=== PATIENT | male | born 1955 | race Caucasian/White ===

== ENCOUNTER → 2020-08-12 | Outpatient (CLI) | payer OTHER, BC ==
[~2020-08-12] MED LIST: ADVAIR 100-501 EACH INH; BETASERON0.3 MG SUBQ; COREG6.25 MG PO; DEXAMETHASONE1 MG PO; DULERA 50 MCG-513 GM INH; ELIQUIS5 MG PO; FLORINEF ACETA0.1 MG PO; LISINOPRIL20 MG PO; MS CONTIN 30 MG30 M1 PO; NORCO7.5 PO; PROTONIX 20 MG20 MG PO; RITALIN5 MG PO; SUPER THERAVIT1 EACH PO; TRILEPTAL300 MG PO; VALIUM2 MG PO; VITAMIN D3125 MC1 PO
== END ==
LOC: LAB 13:44
PROVIDERS: ATTEND Specialist
DX: Z01.812 Encounter for preprocedural laboratory examination (principal); Z20.822 Contact with and (suspected) exposure to COVID-19

== ENCOUNTER → 2020-08-17 | Outpatient (CLI) | payer OTHER, BC ==
[~2020-08-17] VITALS: Ht 177.8 cm; Wt 81.6 kg
--- NOTE | ~2020-08-17 | P ---
[facility] [place] [address] PROCEDURE REPORT Name: FORD RAO Room #: REG JACQUELIN Tapia#: [id number] Admission: 08/17/20 Attend Phys: Pedro Davis Discharge: Date of : 51 Report #: [id number] THIS REPORT FOR: cc: Bal Braun MD, Mark R. MD McElhinney, Christian C. MD ~ DATE OF SERVICE: 08/17/2020 PROCEDURE PERFORMED: Colonoscopy. HISTORY OF PRESENT ILLNESS: The patient is a 65-year-old male with family history of colon cancer, here for screening colonoscopy. He does report intermittent right lower quadrant abdominal pain. He had a CT scan of the abdomen and pelvis, which was essentially negative in 2014. He takes Linzess for constipation. Family history of colon cancer in his mother. DESCRIPTION OF PROCEDURE: The risks and benefits of the procedure were explained to the patient, those risks including but not limited to bleeding, perforation and the risk of sedation. He understood these risks and gave informed consent. Sedation was given using propofol per anesthesia. Next, a digital rectal exam was initially performed, which was normal. Next, using a standard Olympus colonoscope, the scope was placed in the patient's anus and advanced under direct vision to the cecum. The overall prep was excellent. The cecum and ileocecal valve were normal in appearance. The ascending, transverse, descending and sigmoid colon were normal. The rectal mucosa was normal. On retroflexion, no abnormalities were noted. Scope was then withdrawn and the procedure terminated. The patient tolerated the procedure well. IMPRESSION: Normal colonoscopy. RECOMMENDATIONS: 1. Repeat colonoscopy in 5 years. 2. A script for Levsin was given today to be used on a p.r.n. basis. If pain continues, could consider repeat CT scan of the abdomen and pelvis. Thank you for allowing me to participate in his care. By: [id number] Pedro Hanna MD /nt
== END | disposition home or self-care (01) ==
LOC: GI 08:51
PROVIDERS: ATTEND Specialist
DX: R10.31 Right lower quadrant pain (principal); G35 Multiple sclerosis; R53.82 Chronic fatigue, unspecified; I10 Essential (primary) hypertension; K21.9 Gastro-esophageal reflux disease without esophagitis; Z80.0 Family history of malignant neoplasm of digestive organs; Z87.19 Personal history of other diseases of the digestive system; Z98.890 Other specified postprocedural states; Z79.899 Other long term (current) drug therapy; Z90.49 Acquired absence of other specified parts of digestive tract; Z20.822 Contact with and (suspected) exposure to COVID-19
CPT/HCPCS: 62110; 62900